=== PATIENT | female | born 1990 | race Caucasian/White ===

== ENCOUNTER 2021-07-20 11:50 | Observation (INO) | payer MEDICAID ==
[~2021-07-20] VITALS: Ht 165.1 cm; Wt 77.1 kg
== END 2021-07-20 14:00 | disposition home or self-care (01) ==
LOC: SPU 11:50
PROVIDERS: ADMIT Obstetrics & Gynecology; ATTEND Obstetrics & Gynecology
DX: O62.9 Abnormality of forces of labor, unspecified (principal); Z3A.38 38 weeks gestation of pregnancy
CPT/HCPCS: G0378